=== PATIENT | male | born 1965 | race Caucasian/White ===

== ENCOUNTER 2017-07-04 12:52 | Inpatient (IN) | payer MEDICAID ==
[~2017-07-04] VITALS: Ht 167.6 cm; Wt 72.8 kg
[2017-07-04] MEDS ORDERED: INSULIN (13:07)
[2017-07-04] MEDS ORDERED: SODIUM CHLORIDE 0.9% 1,000 ML IV ONE (13:13)
[2017-07-04 14:07] LABS: BASOPHILS % 0.8 % (0.0-2.0); EOSINOPHILS % 3.4 % (0.0-5.0); HEMATOCRIT. 29.1 % (42.0-52.0); HEMOGLOBIN. 9.6 g/dL (14.0-18.0); LYMPHOCYTES % 21.5 % (20.0-50.0); MEAN CORPUSCULAR HEMOGLOBIN 27.8 pg (28.0-32.0); MEAN CORPUSCULAR VOLUME 84.8 fL (80.0-94.0); MEAN PLATELET VOLUME 7.8 fl (7.4-10.4); MONOCYTES % 10.3 % (2.0-8.0); PLATELET 188 x1000/uL (130-400); RED BLOOD CELL COUNT 3.44 mill/uL (4.7-6.1); RED CELL DISTRIBUTION WIDTH 15.5 % (11.6-14.6)
[2017-07-04 14:10] LABS: CHLORIDE 104 mEq/L (98-107)
[2017-07-04 14:15] LABS: ETHANOL BLOOD < 10 mg/dL
[2017-07-04 14:57] LABS: *AMPHETAMINES SCREEN URINE NEGATIVE (NEGATIVE); *BARBITURATES SCREEN URINE NEGATIVE (NEGATIVE); *BENZODIAZEPINES SCREEN URINE NEGATIVE (NEGATIVE); *COCAINE SCREEN URINE NEGATIVE (NEGATIVE); CANNABINOID URINE SCREEN PRESUMTIVE POSITIVE (NEGATIVE); METHADONE URINE SCREEN NEGATIVE (NEGATIVE); OPIATES URINE SCREEN NEGATIVE (NEGATIVE); PHENCYCLIDINE URINE SCREEN NEGATIVE (NEGATIVE)
[2017-07-04 16:00] LABS: AMMONIA 42 uMol/L (<32)
[2017-07-04 16:04] LABS: CREATINE KINASE MB FRACTION 2.4 ng/mL (0.5-3.6)
[2017-07-04] MEDS ORDERED: MAGNESIUM/ALUMINUM HYDROXIDE/SIMETHICONE 30ML UDC PO PRN (20:15)
[2017-07-04] MEDS ORDERED: DIPHENHYDRAMINE 50MG/ML VIAL IV PRN (20:15)
[2017-07-04] MEDS ORDERED: ACETAMINOPHEN 325MG TABLET PO PRN (20:15)
[2017-07-04] MEDS ORDERED: DEXT 5%/0.45% NACL 1000ML 1,000 ML IV SCH (20:16)
[2017-07-04 22:05] VITALS: BP 110/56
[2017-07-04] MEDS ORDERED: DEXTROSE 50% WATER 50ML SYRINGE IV PRN (23:45)
[2017-07-05] VITALS: BP 110/56
[2017-07-05] MEDS ORDERED: INSULIN GLARGINE UD 100 UNITS/ML SYR SUBCUT SCH ×2 (01:00→22:00)
[2017-07-05 04:00] VITALS: BP 117/62
[2017-07-05] MEDS: BLOOD SUGAR DIAGNOSTIC STRIP TEST SCH ×4 (05:38→20:39)
[2017-07-05 06:24] LABS: BASOPHILS % 0.3 % (0.0-2.0); EOSINOPHILS % 0.2 % (0.0-5.0); HEMATOCRIT. 27.6 % (42.0-52.0); HEMOGLOBIN. 9.1 g/dL (14.0-18.0); MEAN CORPUSCULAR HEMOGLOBIN 27.7 pg (28.0-32.0); MEAN CORPUSCULAR VOLUME 83.9 fL (80.0-94.0); MONOCYTES % 7.3 % (2.0-8.0); NEUTROPHILS % 80.2 % (40.0-76.0); PLATELET 160 x1000/uL (130-400); RED BLOOD CELL COUNT 3.29 mill/uL (4.7-6.1); RED CELL DISTRIBUTION WIDTH 15.7 % (11.6-14.6)
[2017-07-05 07:24] LABS: CHLORIDE 111 mEq/L (98-107)
[2017-07-05 07:35] LABS: CREATINE KINASE 132 IU/L (39-308)
[2017-07-05 08:00] VITALS: BP 122/63
[2017-07-05] MEDS: INSULIN LISPRO 100 UNITS/ML SUBCUT SCH ×4 (08:14→20:42)
[2017-07-05 12:00] VITALS: BP 152/82
[2017-07-05] MEDS ORDERED: INFLUENZA VIRUS VACCINE 0.5ML SYR IM ONE (12:00)
[2017-07-05 16:00] VITALS: BP 154/81
[2017-07-05 20:00] VITALS: BP 152/76
[2017-07-05] MEDS: ONDANSETRON HCL 4MG/2ML VIAL IV PRN (20:43)
[2017-07-06] VITALS (8 sets, daily range): BP systolic 143–167; BP diastolic 69–90
[2017-07-06] MEDS: BLOOD SUGAR DIAGNOSTIC STRIP TEST SCH ×2 (06:13→12:30)
[2017-07-06] MEDS: CLONIDINE 0.1MG TABLET PO PRN ×2 (06:14→13:42)
[2017-07-06] MEDS: INSULIN LISPRO 100 UNITS/ML SUBCUT SCH ×2 (07:06→13:24)
[2017-07-06 08:45] LABS: BASOPHILS % 0.4 % (0.0-2.0); EOSINOPHILS % 1.8 % (0.0-5.0); HEMATOCRIT. 27.6 % (42.0-52.0); HEMOGLOBIN. 9.2 g/dL (14.0-18.0); LYMPHOCYTES % 13.5 % (20.0-50.0); MEAN CORPUSCULAR HEMOGLOBIN 27.7 pg (28.0-32.0); MEAN CORPUSCULAR VOLUME 83.6 fL (80.0-94.0); MEAN PLATELET VOLUME 8.1 fl (7.4-10.4); MONOCYTES % 7.9 % (2.0-8.0); NEUTROPHILS % 76.4 % (40.0-76.0); PLATELET 171 x1000/uL (130-400); RED BLOOD CELL COUNT 3.31 mill/uL (4.7-6.1); RED CELL DISTRIBUTION WIDTH 15.9 % (11.6-14.6)
[2017-07-06] MEDS: ONDANSETRON HCL 4MG/2ML VIAL IV PRN (08:48)
[2017-07-06 08:54] LABS: CHLORIDE 107 mEq/L (98-107)
[2017-07-06] MEDS ORDERED: BISACODYL 10MG SUPP PR SCH (14:45)
[2017-07-09 08:00] VITALS: BP 132/71
== END 2017-07-06 16:10 | disposition home or self-care (01) | DRG 52 ==
LOC: ER 13:05 → 7WST 15:45 → EDBD 15:45 → ENRESERV 19:31
PROVIDERS: ADMIT Internal Medicine; ATTEND Internal Medicine
DX: G93.41 Metabolic encephalopathy (principal); N17.9 Acute kidney failure, unspecified; E11.65 Type 2 diabetes mellitus with hyperglycemia; E44.1 Mild protein-calorie malnutrition; G90.8 Other disorders of autonomic nervous system; I10 Essential (primary) hypertension; N28.9 Disorder of kidney and ureter, unspecified; R74.0 Nonspecific elevation of levels of transaminase and lactic acid dehydrogenase [LDH]; Z72.0 Tobacco use; Z79.4 Long term (current) use of insulin; Z83.3 Family history of diabetes mellitus; Z59.0 Homelessness
CPT/HCPCS: 36415; 70450; 71045; 80053; 80305; 80307; 80329; 82140; 82550; 82553; 82962; 84484; 85025; 85379; 93005; 93880; 93970; 96361; 96374; 99291; G0482; J1815; J2405; J7030

== ENCOUNTER 2018-10-31 02:15 | Inpatient (IN) | payer MEDICAID ==
[~2018-10-31] VITALS: Ht 152.4 cm; Wt 54.4 kg
[~2018-10-31 02:15] MED LIST: INSULIN
[2018-10-31 04:58] LABS: BASOPHILS % 0.9 % (0.0-2.0); EOSINOPHILS % 3.9 % (0.0-5.0); HEMOGLOBIN. 10.1 g/dL (14.0-18.0); LYMPHOCYTES % 15.1 % (20.0-50.0); MEAN CORPUSCULAR HEMOGLOBIN 24.3 pg (28.0-32.0); MEAN CORPUSCULAR VOLUME 77.2 fL (80.0-94.0); MONOCYTES % 4.8 % (2.0-8.0); NEUTROPHILS % 75.3 % (40.0-76.0); PLATELET 302 x1000/uL (130-400); RED BLOOD CELL COUNT 4.14 mill/uL (4.7-6.1); RED CELL DISTRIBUTION WIDTH 20.1 % (11.6-14.6)
[2018-10-31 05:04] LABS: CHLORIDE 110 mEq/L (98-107)
[2018-10-31] MEDS ORDERED: SODIUM BICARBONATE 8.4% 1 MEQ/ML 50ML SYR IV ONE (05:30)
[2018-10-31] MEDS ORDERED: SODIUM POLYSTYRENE SULFONATE 15 G/60 ML BOT PO ONE (05:30)
[2018-10-31] MEDS ORDERED: ALBUTEROL (0.083%) 2.5MG/3ML NEB HHN ONE (05:30)
[2018-10-31] MEDS ORDERED: ALBUTEROL (0.5%) 2.5MG/0.5ML NEB HHN ONE (05:50)
[2018-10-31 08:40] VITALS: BP 141/73
[2018-10-31] MEDS ORDERED: SODIUM CHLORIDE 0.9% 1,000 ML IV ONE ×2 (09:21)
[2018-10-31] MEDS ORDERED: VANCOMYCIN 1 G PREMIX 200 ML IV ONE (09:30)
[2018-10-31] MEDS ORDERED: PIPERACILLIN/TAZ 3.375G PREMIX 50 ML IV ONE (09:30)
[2018-10-31 09:39] VITALS: BP 141/73
[2018-10-31] MEDS ORDERED: GUAIFENESIN 200MG/10ML SUGAR FREE UDC PO PRN (09:45)
[2018-10-31] MEDS ORDERED: ACETAMINOPHEN 325MG TABLET PO PRN (09:45)
[2018-10-31] MEDS ORDERED: NITROGLYCERIN 0.4MG TABLET SL SL PRN (09:45)
[2018-10-31] MEDS ORDERED: CLONIDINE 0.1MG TABLET PO PRN (09:45)
[2018-10-31] MEDS ORDERED: ONDANSETRON HCL 4MG/2ML INJ IV PRN (09:45)
[2018-10-31] MEDS ORDERED: DOCUSATE SODIUM 100MG CAPSULE PO PRN (09:45)
[2018-10-31] MEDS ORDERED: IPRATROPIUM/ALBUTEROL 0.5-3(2.5)MG/3ML NEB INH PRN (09:45)
[2018-10-31] MEDS ORDERED: LORAZEPAM 0.5MG TABLET PO PRN (09:45)
[2018-10-31] MEDS ORDERED: DEXTROSE 50% WATER 50ML SYRINGE IV PRN (09:45)
[2018-10-31] MEDS ORDERED: MAGNESIUM/ALUMINUM HYDROXIDE/SIMETHICONE 30ML UDC PO PRN (09:45)
[2018-10-31] MEDS ORDERED: KETOROLAC 15MG/ML VIAL IV PRN (10:00)
[2018-10-31 12:00] VITALS: BP 141/86
[2018-10-31] MEDS: FUROSEMIDE 40MG/4ML VIAL IV SCH ×2 (12:03→17:39)
[2018-10-31] MEDS: GUAIFENESIN 600MG ER TABLET PO SCH ×2 (12:06→21:51)
[2018-10-31] MEDS: BLOOD SUGAR DIAGNOSTIC STRIP TEST SCH ×3 (12:06→21:46)
[2018-10-31] MEDS: ENOXAPARIN 40MG/0.4ML SYR SUBCUT SCH (12:06)
[2018-10-31] MEDS: INSULIN LISPRO 100 UNITS/ML SUBCUT SCH ×3 (12:43→21:00)
[2018-10-31] MEDS ORDERED: LEVOFLOXACIN 750MG PREMIX 150 ML IV SCH (13:00)
[2018-10-31] MEDS ORDERED: ALBU4TAB6 IH (15:57)
[2018-10-31] MEDS ORDERED: INSU100I24 SQ (16:03)
[2018-10-31] MEDS ORDERED: LIP40 MT (16:03)
[2018-10-31] MEDS ORDERED: AMLO10TA80 MT (16:03)
[2018-10-31] MEDS ORDERED: SERT50TA MT (16:03)
[2018-10-31] MEDS ORDERED: CHOL100046 MT (16:03)
[2018-10-31] MEDS ORDERED: OMEP20CA5 MT (16:03)
[2018-10-31] MEDS ORDERED: MULT-1146 MT (16:03)
[2018-10-31] MEDS ORDERED: GABA-531 MT ×2 (16:03)
[2018-10-31] MEDS ORDERED: THIA100T72 MT (16:03)
[2018-10-31] MEDS ORDERED: FERR-71 MT (16:03)
[2018-10-31 17:01] LABS: CREATINE KINASE 195 IU/L (39-308)
[2018-10-31 17:22] LABS: ETHANOL BLOOD < 10 mg/dL
[2018-10-31 17:25] LABS: LDL CHOLESTEROL 33 mg/dL (5-100)
[2018-10-31 17:26] LABS: HDL CHOLESTEROL 41 mg/dL (40-59)
[2018-10-31 18:16] LABS: CLARITY URINE CLEAR (CLEAR); COLOR URINE YELLOW (YELLOW); KETONES URINE NEGATIVE (NEGATIVE); LEUKOCYTE ESTERASE URINE NEGATIVE (NEGATIVE); NITRITE URINE NEGATIVE (NEGATIVE); OCCULT BLOOD URINE TRACE (NEGATIVE); PROTEIN URINE 1+ (NEGATIVE); SPECIFIC GRAVITY URINE 1.006 (1.005-1.030); UROBILINOGEN URINE 0.2 E.U./dL (0.2-1.0)
[2018-10-31 18:32] LABS: *AMPHETAMINES SCREEN URINE NEGATIVE (NEGATIVE); *BARBITURATES SCREEN URINE NEGATIVE (NEGATIVE); *BENZODIAZEPINES SCREEN URINE NEGATIVE (NEGATIVE); *COCAINE SCREEN URINE NEGATIVE (NEGATIVE); METHADONE URINE SCREEN NEGATIVE (NEGATIVE); OPIATES URINE SCREEN NEGATIVE (NEGATIVE); PHENCYCLIDINE URINE SCREEN NEGATIVE (NEGATIVE)
[2018-10-31 18:33] LABS: CANNABINOID URINE SCREEN NEGATIVE (NEGATIVE)
[2018-10-31 19:15] LABS: TOTAL IRON BINDING CAPACITY 266 ug/dL (250-450)
[2018-10-31 20:00] VITALS: BP 147/78
[2018-10-31 20:42] LABS: FOLIC ACID (FOLATE) SERUM 19.4 ng/mL (>5.38)
[2018-10-31] MEDS ORDERED: ZOLPIDEM TARTRATE 5MG TABLET PO PRN (21:00)
[2018-11-01] VITALS: BP 147/78
[2018-11-01 00:18] LABS: CREATINE KINASE 129 IU/L (39-308)
[2018-11-01 00:19] LABS: CREATINE KINASE MB FRACTION 3.9 ng/mL (0.5-3.6)
[2018-11-01] MEDS: FUROSEMIDE 40MG/4ML VIAL IV SCH (06:38)
[2018-11-01] MEDS: BLOOD SUGAR DIAGNOSTIC STRIP TEST SCH ×2 (06:50→13:07)
[2018-11-01] MEDS: INSULIN LISPRO 100 UNITS/ML SUBCUT SCH ×2 (06:50→12:40)
[2018-11-01 08:28] VITALS: BP 155/88
[2018-11-01] MEDS: ENOXAPARIN 40MG/0.4ML SYR SUBCUT SCH (08:49)
[2018-11-01] MEDS: GUAIFENESIN 600MG ER TABLET PO SCH (08:49)
[2018-11-01] MEDS ORDERED: SODIUM POLYSTYRENE SULFONATE 15 G/60 ML BOT PO NR (13:30)
[2018-11-01 16:50] VITALS: BP 154/79
[2018-11-02] MEDS ORDERED: LEVOFLOXACIN 250MG TABLET PO SCH (11:00)
== END 2018-11-01 17:24 | disposition home or self-care (01) | DRG 194 ==
LOC: ER 02:15 → 8WST 06:45 → EDBEDREQ 06:47 → EDBEDREQTM 06:47 → ENRESERV 08:01
PROVIDERS: ADMIT Internal Medicine; ATTEND Internal Medicine
DX: I50.41 Acute combined systolic (congestive) and diastolic (congestive) heart failure (principal); G93.41 Metabolic encephalopathy; E44.0 Moderate protein-calorie malnutrition; E87.5 Hyperkalemia; E83.51 Hypocalcemia; I27.22 Pulmonary hypertension due to left heart disease; D63.8 Anemia in other chronic diseases classified elsewhere; E11.9 Type 2 diabetes mellitus without complications; Z59.0 Homelessness; Z79.4 Long term (current) use of insulin; Z68.23 Body mass index [BMI] 23.0-23.9, adult
CPT/HCPCS: 36415; 71045; 80048; 80061; 80305; 80320; 82550; 82553; 82607; 82746; 82962; 83036; 83540; 83550; 83605; 83880; 84132; 84484; 93005; 93306; 93970; 94640; 96374; 99285; J1650; J1815; J1940; J1956; J2543; J3370; J3490; J7030; J7611; G0480